=== PATIENT | male | born 1965 | race Native Hawaiian/Other Pacific Islander ===

== ENCOUNTER 2020-10-01 11:07 | Emergency (ER) | payer OTHER ==
[~2020-10-01] VITALS: Ht 175.3 cm; Wt 79.4 kg
[2020-10-01 11:07] VITALS: TEMP 97.3
[2020-10-01 11:57] LABS: PLATELET COUNT 149 K/uL (142-355)
[2020-10-01 12:10] LABS: POTASSIUM 3.8 mmol/L (3.6-5.2); SODIUM 137 mmol/L (136-145)
[2020-10-01 14:00] VITALS: BP 121/86
== END 2020-10-01 14:13 ==
LOC: ED 11:07
PROVIDERS: Emergency Medicine Emergency Medical Services
DX: U07.1 COVID-19 (principal)
CPT/HCPCS: 36600; 80053; 82805; 83605; 84484; 85027; 87040; 93005; 96360; 96374; 96375; 99284; J2930

== ENCOUNTER 2020-10-03 13:56 | Emergency (ER) | payer OTHER ==
[~2020-10-03] VITALS: Ht 175.3 cm; Wt 79.4 kg
[2020-10-03 15:59] LABS: PLATELET COUNT 281 K/uL (142-355)
[2020-10-03 16:14] LABS: POTASSIUM 4.1 mmol/L (3.6-5.2); SODIUM 142 mmol/L (136-145)
[2020-10-03 16:32] LABS: PARTIAL THROMBOPLASTIN TIME 22.6 SECONDS (24.5-33.6)
[2020-10-03 17:50] VITALS: BP 139/97; TEMP 96.9
== END 2020-10-03 17:50 | disposition home or self-care (01) ==
LOC: ED 13:56
PROVIDERS: Hospitalist
DX: U07.1 COVID-19 (principal); J12.82 Pneumonia due to coronavirus disease 2019; J44.9 Chronic obstructive pulmonary disease, unspecified
CPT/HCPCS: 36415; 80053; 82550; 83880; 84484; 85027; 85610; 85730; 93005; 96374; 99284; J1100